=== PATIENT | male | born 1945 | race Native Hawaiian/Other Pacific Islander ===

== ENCOUNTER 2016-11-21 12:57 | Outpatient (CLI) | payer OTHER, MEDICARE ==
[2016-11-21 13:18] LABS: PLATELET COUNT 210 K/uL (142-355)
== END 2016-11-21 13:30 | disposition home or self-care (01) ==
LOC: LABW 12:57
PROVIDERS: Nurse Practitioner Adult Health
DX: E29.1 Testicular hypofunction (principal)
CPT/HCPCS: 36415; 84403; 85027

== ENCOUNTER 2017-03-19 11:32 | Outpatient (CLI) | payer OTHER, MEDICARE ==
[2017-03-19 12:04] LABS: POTASSIUM 3.7 mmol/L (3.6-5.2); SODIUM 140 mmol/L (136-145)
== END 2017-03-19 12:35 | disposition home or self-care (01) ==
LOC: LABW 11:32
PROVIDERS: Nurse Practitioner Adult Health
DX: R74.8 Abnormal levels of other serum enzymes (principal)
CPT/HCPCS: 36415; 80053

== ENCOUNTER 2017-06-11 10:56 | Outpatient (CLI) | payer OTHER, MEDICARE ==
[2017-06-11 11:25] LABS: PLATELET COUNT 265 K/uL (142-355)
== END 2017-06-11 11:58 | disposition home or self-care (01) ==
LOC: LABW 10:56
PROVIDERS: Internal Medicine Rheumatology
DX: M19.041 Primary osteoarthritis, right hand (principal); M17.11 Unilateral primary osteoarthritis, right knee; Z79.899 Other long term (current) drug therapy; Z51.81 Encounter for therapeutic drug level monitoring; M02.89 Other reactive arthropathies, multiple sites
CPT/HCPCS: 36415; 85027

== ENCOUNTER 2017-12-10 15:16 | Outpatient (CLI) | payer OTHER, MEDICARE ==
[2017-12-10 15:45] LABS: PLATELET COUNT 188 K/uL (142-355)
== END 2017-12-10 19:27 | disposition home or self-care (01) ==
LOC: LABW 15:16
PROVIDERS: Internal Medicine
DX: E29.1 Testicular hypofunction (principal); Z79.899 Other long term (current) drug therapy; Z51.81 Encounter for therapeutic drug level monitoring
CPT/HCPCS: 36415; 84403; 85027

== ENCOUNTER 2018-05-02 11:49 | Outpatient (CLI) | payer OTHER, MEDICARE | END 2018-05-02 19:21 | disposition home or self-care (01) | LOC: RAD 11:49 | DX: M54.5 Low back pain (principal) ==

== ENCOUNTER 2019-03-17 11:18 | Outpatient (CLI) | payer OTHER ==
[2019-03-17 11:30] LABS: PLATELET COUNT 188 K/uL (142-355)
== END 2019-03-17 21:50 | disposition home or self-care (01) ==
LOC: LABW 11:18
PROVIDERS: Internal Medicine
DX: E29.1 Testicular hypofunction (principal); Z79.899 Other long term (current) drug therapy
CPT/HCPCS: 36415; 84403; 85027

== ENCOUNTER 2022-04-15 09:58 | Outpatient (CLI) | payer OTHER | END 2022-04-15 23:23 | disposition home or self-care (01) | LOC: RAD 09:58 | PROVIDERS: ATTEND Nurse Practitioner Family | DX: M06.4 Inflammatory polyarthropathy (principal); M25.561 Pain in right knee; M25.562 Pain in left knee; M54.51 Vertebrogenic low back pain ==

== ENCOUNTER 2022-07-28 09:15 | Emergency (ER) | payer OTHER ==
[~2022-07-28] VITALS: Ht 177.8 cm; Wt 81.6 kg
[2022-07-28 09:26] VITALS: TEMP 100.2
[2022-07-28 11:19] VITALS: BP 156/66
== END 2022-07-28 11:25 | disposition home or self-care (01) ==
LOC: ED 09:15
DX: S32.018A Other fracture of first lumbar vertebra, initial encounter for closed fracture (principal); S30.0XXA Contusion of lower back and pelvis, initial encounter; W08.XXXA Fall from other furniture, initial encounter; Y92.89 Other specified places as the place of occurrence of the external cause
CPT/HCPCS: 96372; 99283; J1885; J2360